=== PATIENT | female | born 1980 | race Caucasian/White ===

== ENCOUNTER 2016-12-14 11:19 | Emergency (ER) | payer OTHER ==
[2016-12-14] MEDS ORDERED: ONDANSETRON HCL/PF 2 MG/ML VIAL IV ONE ×2 (11:39→13:32)
[2016-12-14] MEDS ORDERED: ASPIRIN 81 MG TAB.CHEW PO ONE (11:39)
[2016-12-14] MEDS ORDERED: KETOROLAC TROMETHAMINE 30 MG/ML VIAL IV ONE (11:47)
[2016-12-14] MEDS ORDERED: NORMAL SALINE 1,000 ML IV ONE (11:47)
--- NOTE | 2016-12-14 11:48 | ERNOTE ---
Abdominal HPI - Narrative Date of Service: 12/14/16 - General Chief Complaint: Abdominal Pain Time Seen by Provider: 12/14/16 11:29 Source: patient Exam Limitations: no limitations - Immun/Allergies/Home Medications Immunizatons: IMMUNIZATION HX Immunizations Up to Date Yes Allergies/Adverse Reactions: Allergies No Known Allergies Allergy (Verified 12/14/16 11:31) Home Medications: HOME MEDICATIONS NK [No Home Medication] 12/14/16 [Last Taken Unknown] - History of Present Illness Narrative: Pt. comes in with c/o L flank pain that radiates to her L anterior chest and LUQ and LLQ of her abdomen for 2 days. Pt. also states that she has had R flank pain that developed more recently. Pt. denies any fever, SOB, diarrhea, alleviating factors or prehospital treatment but does state that it is accompanied by dysuria and nausea since this morning. Review of Systems - Review of Systems Constitutional: Present: malaise. Absent: fever, chills, weakness, fatigue EYE: Present: no symptoms reported ENT: Present: no symptoms reported Respiratory: Present: no symptoms reported. Absent: shortness of breath, cough , wheezing Cardiology: Present: chest pain. Absent: palpitations, edema Gastrointestinal/Abdominal: Present: nausea, vomiting, abdominal pain. Absent: diarrhea Genitourinary: Present: dysuria, decreased urinary output. Absent: frequency, pain Musculoskeletal: Present: back pain - B flank Skin: Present: no symptoms reported. Absent: rash, change in color, change in hair/nails Neurological: Present: no symptoms reported. Absent: headache, dizziness/light- headedness, numbness, tingling All Other Systems: All systems neg except as marked - Patient's Past Medical History Patient History - Medical: No pertinent hx Patient History - Cardiac/Respiratory: No pertinent hx Patient History - Cancer: No Hx of Cancer Patient History - Surgical Procedures: Cholecystectomy, Tubal Ligation, Orthopedic - Social History Smoking Status: Never smoker Have you smoked in the past 12 months: No - Immunizations Immunizations Up to Date: Yes Physical Exam - Physical Exam General Appearance: Present: wd/wn, alert, no apparent distress Head Exam: Present: normal inspection, no evidence of injury Eye Exam: Normal inspection: bilateral, PERRL: bilateral, EOMI: bilateral Ears, Nose, Throat: Present: normal ENT inspection, normal pharynx Neck: Present: normal inspection, nontender. Absent: lymphadenopathy (R), lymphadenopathy (L) Respiratory: Present: no respiratory distress, normal breath sounds, no accessory muscle use, chest nontender, lungs clear Cardiovascular/Chest: Present: regular rate, rhythm, no murmur, normal peripheral pulses Gastrointestinal/Abdominal: Present: nondistended, soft, no organomegaly, tenderness - LUQ and LLQ Back Exam: Present: normal range of motion, no vertebral tenderness, CVA tenderness (L). Absent: CVA tenderness (R) Extremity Exam: Present: normal inspection, non-tender, normal range of motion, no edema Neurological Exam: Present: alert, oriented, normal mood/affect, no motor/ sensory deficits Skin Exam: Present: warm/dry, pallor ED Progress - Date and Time Seen: Date and Time: 12/14/16 13:19 As pt. has brandon turia, flank pain, and calcification on L side of plain abd film feel that pt. needs CT to rulle out obstructing stone. 12/14/16 1500 Discussed with pt. that she needs to follow up with her PCP in 2-3 days to discuss overall vascular congestion, cardiomegaly, and breast lesion. Pt. 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 - Results and Orders Patient's Lab Results:: I have reviewed the patient's lab results. - Vital Signs Patient's Vital Signs:: I have reviewed the patient's vital signs. Vital Signs: Vital Signs 12/14/16 11:25 Temperature 36.7 C Pulse Rate 95 Respiratory 14 Rate Blood Pressure 158/95 O2 Sat by Pulse 95 Oximetry - EKG EKG: NSR, nonspecific ST T wave changes EKG read: Reviewed by me EKG Comments: interp by Dr Hayden - X-Ray X-Ray #1 X-Ray: chest Interpretation: Interp. by me X-ray Comments: no consolidation or infiltrate. boarderline cardiomegaly. X-Ray #2 X-Ray: abdomen Interpretation: Interp. by me X-ray Comments: nonspecific bowel gas pattern with air fluid levels on R side of abdomen. Calcifications seen on L hemipelvis. - CT/Ultrasound CT/Ultrasound Narrative: Discussed with Dr Frias. Pt. with vascular congestion that makes following ureters difficult but he feels that calcifications are phleboliths and not renal stones but if pt. pain continues he recommends C ureteralgram. Also pt. with non emergent 1cm density in R breast aht needs follow up. - Progress/Reassessment Chief Complaint: Abdominal Pain Progress:: Improved Departure - Departure Clinical Impression: Renal colic on left side Disposition: Home self-care Condition: Good Instructions: Renal Colic, [id number] Additional Instructions: Please follow up with primary provider in 2-3 days and take Ibuprofen up to 600mg every 6 hours for pain. Referrals: Jose Navas MD [Primary Care Provider] -
[2016-12-14] MEDS ORDERED: ONDANSETRON HCL/PF 2 MG/ML VIAL ONE ×2 (11:51→13:33)
[2016-12-14] MEDS ORDERED: KETOROLAC TROMETHAMINE 30 MG/ML VIAL ONE (11:51)
[2016-12-14] MEDS ORDERED: ASPIRIN 81 MG TAB.CHEW ONE (11:51)
[2016-12-14 11:54] LABS: Hemoglobin 14.1 gm/dL (12.5-16.0); Mean Cell Volume 88.4 fl (78-100); Mean Corpuscular Hemoglobin 29.7 pg (27-31); Mean Corpuscular Hgb Conc 33.6 g/dl (32-36); Mean Platelet Volume 8.8 fl (6.0-9.5); Neutrophil # 3.2 K/mm3 (1.3-6.0); Neutrophil % 60.1 % (42-75.0); Platelet Count 274 K/mm3 (150-450); Red Blood Count 4.75 M/mm3 (4.2-5.4); Red Cell Distribution Width 13.1 % (11.5-14.0); White Blood Count 5.4 K/mm3 (4.0-10.5)
[2016-12-14 12:14] LABS: INR 0.96 INR (0.90-1.10); Partial Thrombolplastin Time 25.5 Seconds (24-32)
[2016-12-14 12:17] LABS: ALT 23 U/L (19-67); AST 18 U/L (0-48); Albumin * 3.8 gm/dl (3.4-5.0); Alkaline Phosphatase * 69 U/L (50-170); Amylase * 107 U/L (25-115); Anion Gap 12.9 mmol/L (6.8-13.8); BUN/Creatinine Ratio 11.7 (9.0-21.6); Bilirubin, Total 0.6 mg/dL (0.0-1.1); Blood Urea Nitrogen 9 mg/dL (3-23); Ca. Corrected For Albumin 8.3 mg/dL (8.4-10.2); Calcium * 8.5 mg/dL (7.9-10.9); Chloride 102 mmol/L (97-106); Glucose * 92 mg/dL (70-110); Lipase 68 U/L (73-393); Potassium 3.9 mmol/L (3.4-4.6); Sodium 141 mmol/L (132-142); Total Protein 7.3 gm/dL (6.2-8.2); Troponin I Less than 0.017 ng/ml (0.00-0.10)
[2016-12-14 13:09] LABS: Urine Bilirubin Negative (NEGATIVE); Urine Ketone Negative (NEGATIVE); Urine Nitrite Negative (NEGATIVE); Urine Protein Negative (NEGATIVE); Urine Urobilinogen Normal (NORMAL)
[2016-12-14 13:16] LABS: Urine Appearance Clear; Urine Bacteria None Seen; Urine Blood 5 /ul (NEGATIVE); Urine Color Yellow; Urine RBC 0-5 /hpf (0-5); Urine WBC None Seen /hpf (0-5)
[2016-12-14 14:33] VITALS: BP 102/63
== END 2016-12-14 14:56 | disposition home or self-care (01) ==
LOC: ER 11:19
DX: N23 Unspecified renal colic (principal)
CPT/HCPCS: 36415; 71020; 74020; 74176; 80053; 81001; 82150; 83690; 84484; 84703; 85025; 85610; 85730; 93005; 96374; 96375; 99285; J2405

== ENCOUNTER 2017-02-04 10:49 | Emergency (ER) | payer OTHER ==
[2017-02-04 11:00] VITALS: BP 130/93
[2017-02-04] MEDS ORDERED: KETOROLAC TROMETHAMINE 60 MG/2 ML VIAL IM ONE ×2 (11:19→11:31)
[2017-02-04] MEDS ORDERED: DIPHTH,PERTUSS(ACELL),TET VAC 0.5 ML VIAL IM ONE ×2 (11:54→12:14)
--- NOTE | 2017-02-04 11:58 | ERNOTE ---
Upper Extremity HPI - Narrative Date of Service: 02/04/17 - General Extremities Pain Location: thumb: right Time Seen by Provider: 02/04/17 11:00 Source: patient - Immun/Allergies/Home Medications Immunizations: IMMUNIZATION HX Immunizations Up to Date Yes History of Influenza Vaccine No Hx Pneumococcal Vaccination No Allergies/Adverse Reactions: Allergies Allergy/AdvReac Type Severity Reaction Status Date / Time latex Allergy Verified 02/04/17 11:01 Home Medications: HOME MEDICATIONS Cephalexin Monohydrate [Keflex] 500 mg PO QID #20 cap 02/04/17 [Last Taken Unknown] HYDROcodone/ACETAMINOPHEN [Hydrocodon-Acetaminophen 5-325] 1 each PO TID PRN # 20 tablet 02/04/17 [Last Taken Unknown] - History of Present Illness Narrative: 36-year-old female presents to the emergency room for right thumb pain. Patient states that yesterday her finger got slammed in her screen door. Patient states that she applied pressure and Depending on all night but today she is worried that the fingernail may have to be removed and she is pain. Date (Duration): 02/04/17 Occurred: yesterday Location of Incident: home Severity: mild Method of Injury: Reports: direct blow Loss of Consciousness: Reports: no loss of consciousness Other Injuries: Reports: none Review of Systems - Review of Systems Constitutional: Present: no symptoms reported EYE: Present: no symptoms reported ENT: Present: no symptoms reported Respiratory: Present: no symptoms reported Cardiology: Present: no symptoms reported Gastrointestinal/Abdominal: Present: no symptoms reported Genitourinary: Present: no symptoms reported Musculoskeletal: Present: See HPI, joint pain, joint swelling Skin: Present: See HPI, change in color, change in hair/nails Neurological: Present: no symptoms reported Endocrine: Present: no symptoms reported Hematologic/Lymphatic: Present: no symptoms reported Psych: Present: no symptoms reported All Other Systems: All systems neg except as marked - Patient's Past Medical History Patient History - Medical: No pertinent hx Patient History - Cardiac/Respiratory: No pertinent hx Patient History - Cancer: No Hx of Cancer Patient History - Surgical Procedures: Cholecystectomy, Tubal Ligation, Orthopedic Patient History - Other: None - Social History Living Situations: home Psych History: No pertinent hx Smoking Status: Never smoker Have you smoked in the past 12 months: No Do you dip or chew tobacco: No Alcohol Use: occasionally Drug Use: none - Immunizations Immunizations Up to Date: Yes Hx Pneumococcal Vaccination: No History of Influenza Vaccine: No Physical Exam - Physical Exam Narrative: patient has a subungual hematoma and several small lacerations around her fingernail. She has good capillary refill and sensation to the tip of her finger, and good ROM. General Appearance: Present: wd/wn, alert, mild distress Head Exam: Present: normal inspection, no evidence of injury Eye Exam: Normal inspection: bilateral, PERRL: bilateral, EOMI: bilateral Ears, Nose, Throat: Present: normal ENT inspection, normal pharynx Neck: Present: normal inspection, nontender, supple, full range of motion Respiratory: Present: no respiratory distress, normal breath sounds, no accessory muscle use, chest nontender, lungs clear Cardiovascular/Chest: Present: regular rate, rhythm, no murmur, normal peripheral pulses Peripheral Pulses: N=norm/S=strong/W=weak/B=bound/A=absent: Radial (R): Normal, Radial (L): Normal Gastrointestinal/Abdominal: Present: normal bowel sounds, nontender, nondistended, soft, no organomegaly Back Exam: Present: normal inspection, normal range of motion, no CVA tenderness , no vertebral tenderness Extremity Exam: Present: normal except - - thumb swollen with a few superficial lacerations, normal range of motion Neurological Exam: Present: alert, oriented, normal mood/affect, no motor/ sensory deficits Skin Exam: Present: normal color, warm/dry, other - see note Lymphatic Exam: Present: no adenopathy ED Progress - Vital Signs Patient's Vital Signs:: I have reviewed the patient's vital signs. Vital Signs: Vital Signs 02/04/17 10:56 Temperature 36.9 C Pulse Rate 91 Respiratory 20 Rate Blood Pressure 130/93 O2 Sat by Pulse 98 Oximetry - X-Ray X-Ray #1 X-Ray: hand Interpretation: Reviewed by me X-ray Comments: History: crush injury thumb. Additional history provided by the technologist: Slammed thumb in door. Technique: Right thumb series (3 views) Comparison: None. Correlation is made with MRI of the hand dated July 28, 2016. Findings: There is a radiopaque ring at the level of the third proximal phalanx that obscures full evaluation of the underlying osseous and soft tissues. No acute fracture or dislocation. Ulnar negative variance. Alignment is otherwise unremarkable. Mineralization is normal. No significant degenerative change. No destructive osseous lesions. Joint spaces are maintained. Suggestion of soft tissue swelling. No subcutaneous emphysema. No radiopaque foreign body. No calcified mass. Impression: No acute osseous findings. Additional findings and comments are as above. Electronically signed by Maxim Vasquez D.O.. Maxim Vasquez DO Dict: 02/04/17 1129 Typed: 02/04/17 1129/ - Progress/Reassessment Chief Complaint: Hand Injury/Pain Progress:: Improved Procedures Nail Trepanation Location: right thumb Hands with nails: 1 - thumb nail Method of Drainage: nail cauterized Sterile Dressing Applied: Yes Complications: Pt yasmeen procedure well Plan - Plan Plan: patient is to follow up withher PCP on tuesday or return to Ed for increased pain or s/s of infection. Departure Clinical Impression: Crush injury to thumb Qualifiers: Encounter type: initial encounter Laterality: right Qualified Code(s): S67.01XA - Crushing injury of right thumb, initial encounter - Departure Disposition: Home Follow Up Needed Condition: Stable Instructions: Crush Injury, Fingers or Toes, [id number] Additional Instructions: Continue any previous home medications as directed. Follow up with her primary care provider on Tuesday. Return to the emergency room a few have any signs of symptoms of infection. Return to the emergency room his pain is not able to be controlled R thumb becomes discolored. Change dressing twice a day, and keep a dressing over the thumbnail. Referrals: Jose Navas MD [Primary Care Provider] - Prescriptions: Cephalexin Monohydrate [Keflex] 500 mg PO QID #20 cap HYDROcodone/ACETAMINOPHEN [Hydrocodon-Acetaminophen 5-325] 1 each PO TID PRN # 20 tablet PRN Reason: Pain
== END 2017-02-04 12:30 | disposition home or self-care (01) ==
LOC: ER 10:49
PROC: 0H9QXZZ Drainage of Finger Nail, External Approach (ICD-10-PCS; principal; 2017-02-04)
DX: S67.01XA Crushing injury of right thumb, initial encounter (principal); X58.XXXA Exposure to other specified factors, initial encounter; Y92.008 Other place in unspecified non-institutional (private) residence as the place of occurrence of the external cause